=== PATIENT | female | born 1965 ===

== ENCOUNTER 2020-09-04 21:13 | Emergency (ER) | payer OTHER ==
[~2020-09-04] VITALS: Ht 170.2 cm; Wt 70.5 kg
[2020-09-04 21:20] VITALS: BP 176/109
[2020-09-04] MEDS ORDERED: LIDOcaine 1% W/epiNEPHrine 1:200,000 10ml vial IJ ONE (22:00)
[2020-09-04] MEDS ORDERED: TETanus/Pertussis (Acell)/Diphther VAC/PF (Tdap-Adult) 0.5ml syringe IMVAC ONE (22:00)
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
[2020-09-04] MEDS ORDERED: HYDROcodone/acetaminophen 10/325mg tab PO ONE (22:40)
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
[2020-09-04] MEDS ORDERED: AMOX-422 PO (22:59)
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
--- NOTE | 2020-09-04 23:14 | NUR ---
tech cleaning 3 wounds out with ns
--- NOTE | 2020-09-04 23:24 | NUR ---
REPORT TO MARGARET WIGGINS
[2020-09-05] MEDS ORDERED: bacitracin 15gm ointment TP ONE (00:20)
== END 2020-09-05 00:30 | disposition home or self-care (01) ==
LOC: ER 21:14
DX: S41.112A Laceration without foreign body of left upper arm, initial encounter (principal); F17.200 Nicotine dependence, unspecified, uncomplicated; Z98.890 Other specified postprocedural states; Z79.899 Other long term (current) drug therapy; W54.0XXA Bitten by dog, initial encounter; Y93.89 Activity, other specified; Y92.89 Other specified places as the place of occurrence of the external cause; Y99.8 Other external cause status
CPT/HCPCS: 12002; 12004; 73060; 90471; 90715; 99283